=== PATIENT | male | born 1965 | race Caucasian/White ===

== ENCOUNTER 2018-01-04 00:30 | Emergency (ER) | payer OTHER ==
[~2018-01-04] VITALS: Ht 170.2 cm; Wt 186.6 kg
[~2018-01-04 00:30] MED LIST: COZAAR100 MG PO
[2018-01-04] MEDS ORDERED: LIDODERM 5% P1 PATCH TD (03:36)
[2018-01-04] MEDS ORDERED: PERCOCET 5/31 TABLET PO (03:36)
[2018-01-04] MEDS ORDERED: FLEXERIL10 MG PO (03:36)
[2018-01-04 04:15] VITALS: BP 106/79
== END 2018-01-04 04:17 | disposition home or self-care (01) ==
LOC: EME 00:30
DX: M54.42 Lumbago with sciatica, left side (principal); Z86.711 Personal history of pulmonary embolism; Z87.442 Personal history of urinary calculi; K21.9 Gastro-esophageal reflux disease without esophagitis; I10 Essential (primary) hypertension; R11.0 Nausea
CPT/HCPCS: 72131; 74176; 99281; 99284; J2270